=== PATIENT | female | born 1985 | race African-American/Black ===

== ENCOUNTER 2017-11-22 02:06 | Emergency (ER) | payer OTHER ==
[~2017-11-22] VITALS: Ht 182.9 cm; Wt 95.3 kg
[2017-11-22] MEDS ORDERED: NORCO 7.5-3251 EACH PO (03:01)
[2017-11-22 03:14] VITALS: BP 121/88
== END 2017-11-22 03:17 | disposition home or self-care (01) ==
LOC: M.ERS 02:06
DX: S42.035A Nondisplaced fracture of lateral end of left clavicle, initial encounter for closed fracture (principal); W18.2XXA Fall in (into) shower or empty bathtub, initial encounter; Y93.89 Activity, other specified; Y92.89 Other specified places as the place of occurrence of the external cause; Y99.8 Other external cause status